=== PATIENT | male | born 1940 | race Caucasian/White ===

== ENCOUNTER 2017-10-15 10:59 | Emergency (ER) | payer MEDICARE, BC ==
[2017-10-15] MEDS ORDERED: HYDROcodone/Acetaminophen 5/325 mg Tablet ONE (12:07)
[2017-10-15] MEDS ORDERED: Acetaminophen 500 MG TAB ONE (12:07)
[2017-10-15] MEDS ORDERED: Dexamethasone 10 MG/ML VIAL ONE (12:07)
== END 2017-10-15 13:25 | disposition home or self-care (01) ==
LOC: SCSER 10:59
DX: M19.071 Primary osteoarthritis, right ankle and foot (principal); E11.9 Type 2 diabetes mellitus without complications; E03.9 Hypothyroidism, unspecified; E78.5 Hyperlipidemia, unspecified; I10 Essential (primary) hypertension; Z79.899 Other long term (current) drug therapy; Z79.01 Long term (current) use of anticoagulants; W23.0XXA Caught, crushed, jammed, or pinched between moving objects, initial encounter
CPT/HCPCS: 96372; J1100

== ENCOUNTER 2019-08-06 18:51 | Emergency (ER) | payer MEDICARE, BC ==
[2019-08-06 19:32] LABS: #Eosinphils 0.2 thou/uL (0.0-0.7); #Lymphocytes 2.4 thou/uL (1.20-3.40); #Monocytes 1.1 thou/uL (0.11-0.59); %Basophils 0.1 % (0.0-1.0); %Eosinophils 1.9 % (0.0-10.0); %Lymphocytes 22.4 % (21.0-51.0); %Monocytes 10.4 % (0.0-10.0); %Neutrophils 65.1 % (42.0-75.0); Hemoglobin 12.1 g/dL (14.0-18.0); Mean Corpuscular HGB CONC 34.6 g/dL (32.0-36.0); Mean Corpuscular Hemoglobin 35.6 pg (27.0-31.0); Mean Platelet Volume 7.9 fL (7.4-10.4); Platelet Count 247 thou/uL (130-400); RBC Distribution Width 12.3 % (11.5-14.5); White Blood Cell (WBC) Count 10.7 thou/uL (4.8-10.8)
--- NOTE | 2019-08-06 19:37 | RAD ---
LEFT KNEE FOUR VIEWS: 08/06/19 HISTORY: Knee pain and swelling for 4 to 5 days. There is a small joint effusion present. There is minimal arthritic changes of the knee. No fractures . IMPRESSION: No acute changes. Small joint effusion. POS: [facility]
--- NOTE | 2019-08-06 19:38 | RAD ---
PORTABLE CHEST: 08/06/19 HISTORY: Dyspnea. COMPARISON: 01/03/19 exam. Heart size is enlarged with postop sternotomy changes and a pacemaker. Some increased retrocardiac de nsity could represent atelectasis or infiltrate. IMPRESSION: 1. Cardiomegaly. 2. Increased retrocardiac density. Difficult to assess on the AP film. It raises the possibility of some atelectasis or retrocardiac infiltrate. POS: [facility]
[2019-08-06 19:49] LABS: PTT 83.7 SEC (22.9-36.1)
[2019-08-06 19:51] LABS: INR-International Normal Ratio 4.2
[2019-08-06] MEDS ORDERED: Lidocaine 1% w/Epinephrine 1:100K 20 ML VIAL ONE (19:52)
[2019-08-06 20:00] LABS: ALT (SGPT) 14 U/L (8-55); AST (SGOT) 19 U/L (5-34); Albumin 3.3 g/dL (3.4-4.8); Alkaline Phosphatase 62 U/L (40-150); Anion Gap 16 mmol/L (10-20); BUN (Urea Nitrogen) 21 mg/dL (8.4-25.7); Bilirubin, Total 0.8 mg/dL (0.2-1.2); Calc. Creatinine Clearance 0 mL/min (70-130); Calcium 8.4 mg/dL (7.8-10.44); Carbon Dioxide 23 mmol/L (23-31); Chloride 102 mmol/L (98-107); Estimated GFR-MDRD 56; Globulin 2.8 g/dL (2.4-3.5); Glucose 130 mg/dL (83-110); Potassium 4.3 mmol/L (3.5-5.1); Protein, Total 6.1 g/dL (5.8-8.1); Sodium 137 mmol/L (136-145)
[2019-08-06 22:17] LABS: Synovial Fluid, Protein 3.8 g/dL (Not Available)
[2019-08-06 22:21] LABS: RBC Count-Automated (BF) 3429 /cumm; WBC/Nucleated-Auto (BF) 22274 uL
[2019-08-06 22:22] LABS: BF Color Yellow; Body Fluid Source Synovial Fluid; Clarity Cloudy/Turbid (Clear)
[2019-08-06 22:23] LABS: Tube # EDTA
[2019-08-06 22:50] LABS: BF Segmented Neutrophils 96 %; Cell Count Non Hematic 4 %
== END 2019-08-06 23:48 | disposition home or self-care (01) ==
LOC: ERS 18:51
DX: M17.12 Unilateral primary osteoarthritis, left knee (principal); E03.9 Hypothyroidism, unspecified; E78.5 Hyperlipidemia, unspecified; I10 Essential (primary) hypertension; Z79.01 Long term (current) use of anticoagulants; Z79.899 Other long term (current) drug therapy
CPT/HCPCS: 20611; 36415; 71045; 80053; 82945; 83880; 84157; 84484; 85025; 85060; 85610; 85730; 86140; 89051; 89060; 93005; 94760; J2001

== ENCOUNTER 2019-08-08 11:56 | Inpatient (IN) | payer MEDICARE, BC ==
[2019-08-08] MEDS ORDERED: ISOVUE-370 76%-LOCM 1 ML ONE (13:20)
[2019-08-08 14:44] LABS: #Eosinphils 0.2 thou/uL (0.0-0.7); #Lymphocytes 2.1 thou/uL (1.20-3.40); #Monocytes 0.8 thou/uL (0.11-0.59); #Neutrophils 6.2 thou/uL (1.40-6.50); %Basophils 0.2 % (0.0-1.0); %Eosinophils 2.4 % (0.0-10.0); %Lymphocytes 22.3 % (21.0-51.0); %Monocytes 8.9 % (0.0-10.0); %Neutrophils 66.3 % (42.0-75.0); Hemoglobin 11.6 g/dL (14.0-18.0); Mean Corpuscular HGB CONC 33.6 g/dL (32.0-36.0); Mean Corpuscular Hemoglobin 34.9 pg (27.0-31.0); Mean Platelet Volume 7.9 fL (7.4-10.4); Platelet Count 247 thou/uL (130-400); RBC Distribution Width 12.4 % (11.5-14.5); Red Blood Cell (RBC) Count 3.32 mill/uL (4.70-6.10); White Blood Cell (WBC) Count 9.3 thou/uL (4.8-10.8)
--- NOTE | 2019-08-08 14:56 | RAD ---
Left knee 4 views: HISTORY: Left knee pain COMPARISON: 08/06/2019. FINDINGS: No fracture, dislocation or bony destruction is seen. Mild arthritic changes are again seen. A joint effusion is present. There is suggestion of air region of the effusion. Recent intervention versus infection. Clinical correlation is recommended.
[2019-08-08 15:11] LABS: Albumin 3.1 g/dL (3.4-4.8)
[2019-08-08 15:12] LABS: Chloride 102 mmol/L (98-107); Potassium 4.9 mmol/L (3.5-5.1); Sodium 140 mmol/L (136-145)
[2019-08-08 15:13] LABS: Calcium 8.2 mg/dL (7.8-10.44); Glucose 149 mg/dL (83-110)
[2019-08-08 15:15] LABS: Anion Gap 17 mmol/L (10-20); Bilirubin, Total 0.8 mg/dL (0.2-1.2); Carbon Dioxide 26 mmol/L (23-31)
[2019-08-08 15:16] LABS: Alkaline Phosphatase 56 U/L (40-150)
[2019-08-08 15:17] LABS: BUN (Urea Nitrogen) 17 mg/dL (8.4-25.7); Calc. Creatinine Clearance 0 mL/min (70-130); Estimated GFR-MDRD 66
[2019-08-08 15:18] LABS: AST (SGOT) 24 U/L (5-34)
[2019-08-08 15:19] LABS: ALT (SGPT) 16 U/L (8-55)
[2019-08-08 15:38] LABS: Protein, Total 6.1 g/dL (5.8-8.1)
[2019-08-08 16:01] LABS: Prothrombin Time 49.1 SEC (12.0-14.7)
[2019-08-08 16:08] LABS: INR-International Normal Ratio 5.5
--- NOTE | 2019-08-08 16:25 | RAD ---
XR Chest 1 View Portable HISTORY: Shortness of breath COMPARISON: 08/06/2019 FINDINGS: There is suggestion of a small left pleural effusion. Remainder the exam is otherwise stabl e.
--- NOTE | 2019-08-08 17:36 | CT ---
EXAM: CTA of the chest HISTORY: Shortness of breath COMPARISON: None TECHNIQUE: Multiple contiguous axial images were obtained a CTA of the chest with contrast per pulmon jorge embolism protocol. 3-D oblique MIP reformats and direct coronal reformats were performed. FINDINGS: HEART: Normal in size without focal cardiac abnormality. The patient is status post sternotomy. There is a pacemaker with its leads in the right atrium and ventricle. PULMONARY ARTERIES: Normal in caliber without filling defects to suggest pulmonary emboli. MEDIASTINUM: No hilar or mediastinal lymphadenopathy. LUNGS: Consolidation is seen in the left lower lobe consistent with pneumonia. PLEURAL SPACE: No pleural effusion or pneumothorax. CHEST WALL SOFT TISSUES: Unremarkable VISUALIZED OSSEOUS STRUCTURES: Degenerative changes in the spine. VISUALIZED SUBDIAPHRAGMATIC STRUCTURES: Unremarkable IMPRESSION: 1. No evidence of pulmonary thromboembolism 2. Left lower lobe pneumonia
[2019-08-08 18:32] LABS: Troponin I Less than 0.010 ng/mL (< 0.028)
[2019-08-08] MEDS ORDERED: Sodium Chloride 0.9% 1,000 ML IV SCH (19:45)
[2019-08-08 21:04] LABS: Troponin I Less than 0.010 ng/mL (< 0.028)
[2019-08-08] MEDS ORDERED: Fentanyl 100 MCG/2 ML VIAL ONE (21:08)
--- NOTE | 2019-08-08 21:55 | CON ---
DATE OF CONSULTATION: This is Jesus Garcaí PA-C dictating a report for Frantz Tai MD. HISTORY OF PRESENT ILLNESS: We were asked by Dr. Monique in the ER to see the patient. The patient just returned from a 23-day river trip on the [place]. About custodial to the trip, his knee started bother him. He took a Medrol Dosepak and felt okay for a while, but reports the last few days of the trip, his knee really started causing him a good deal of pain and misery. He came in this past Thursday, had the knee tapped and it did show positive crystals. White blood cell count was 22,274, but since this tap, his knee has gotten bigger with a little more warmth and it is very intolerable with any kind of activity, bending, standing, and such. It is also noted today that he has some shortness of breath and some chest pain and he will be admitted to our medical service. Again, looking back through his notes, it looks like unfortunately cultures were not sent because of the positive crystals. His C-reactive protein today was 21.35 and his sedimentation rate was 93. The patient's and son are at the bedside. There were no injuries on the trip, just increased edemas and pain. Speaking with the patient, he has had bouts of this in the past. He has gone in to see Dr. Huffman who has drawn off some fluid and given him a steroid injection and that gets him by fairly well. PAST MEDICAL HISTORY: Positive for hypothyroidism, hyperlipidemia, high cholesterol, hypertension. PAST SURGICAL HISTORY: Aortic valve, pacemaker, cardiac cath, appendectomy, coronary artery bypass graft surgery, one vessel, tonsillectomy, ablation, multiple knee taps with injections. SOCIAL HISTORY: Has occasional EtOH, beverage. No nicotine or drug use. ALLERGIES: ASPIRIN. MEDICATIONS: 1. Lasix. 2. Atorvastatin. 3. Vitamin D3. 4. Glipizide. 5. Levothyroxine. 6. Losartan. 7. Metoprolol. 8. . REVIEW OF SYSTEMS: He is having some chest pain and shortness of breath today and also significant knee pain. Otherwise, rest of review of systems is negative. PHYSICAL EXAMINATION: GENERAL: Well-nourished male, surrounded by family at the bedside. Speech is clear. Affect is pleasant. Answers questions appropriately. Alert and oriented x3. HEENT: Normal exam. Face is symmetric. Tongue is midline. NECK: Shows trachea is midline. RESPIRATORY: He is a little short of breath. Breathing about 20 respirations a minute. EXTREMITIES: Upper extremities, equal in size, shape, symmetry, normal bulk and tone. Lower extremities, also is equal in size, shape, symmetry, normal bulk and tone with the exception of the left lower extremity which does show some edema and increased warmth to the left knee. Otherwise, knee shows no increased redness or any signs of cellulitis. The patient is unable to lift his leg off the bed on the left side due to pain. Even active and passive range of motions are fairly miserable for him. Lower extremities do have a little bit of pitting edema 2 to 3+, but his pulses are equal. ASSESSMENT: 1. Left knee pain. Positive for crystals. 2. Some chest pain, shortness of breath which medical team will admit him for. PLAN: After we saw the patient, we reviewed all of his data from last few visits. It was noted that his tap was positive for crystals, but cultures for some reason were not sent. Hopefully, his knee will get better over the next few days, get some fluid off his body with Lasix and fluid restrictions per Medicine. We will get him with physical therapy once he is able to. If knee continues to be bothersome and full, he may need to have it drained or even a washout if it shows any further signs of infection, but his INR today was 5, so that needs to be much lower before we would attempt anything in the knee, which the patient and family understand. We will follow him through his hospital stay. Job ID: [id number]
--- NOTE | 2019-08-09 02:06 | HP ---
CHIEF COMPLAINT: Left knee pain. HISTORY OF PRESENT ILLNESS: The patient is an 79-year-old male, who recently was in a cruise for about I believe it was over a week, started having some palpitations in the cruise. He was found to be in atrial fibrillation. He was evaluated by a tourist, who was a physician on the cruise. The tourist physician did call his telegraph inspector and updated him about what was going on. The patient stated that his symptoms improved. However, he started having significant pain in his left knee. He has had issues with his left knee in the past and has had fluid to be aspirated in the past. The patient stated that his pain was significant to the point that he was unable to walk without assistance. The patient normally states that he is able to walk without any devices; however, whenever he starts having knee pain, he uses a cane. The patient as soon as when he came back from the cruise, he came right to the ER and he his left knee was aspirated by Ortho and was sent for studies. He was then discharged home; however, the patient stated that even at home, his pain worsened and he came into the ER because he was unable to stand without help from his son or grandson. The patient also stated that he has been having a cough, nonproductive sputum. Denies any fevers or chills. Denies any chest pain or shortness of breath. The patient states that he normally gets short of breath; however, he is trying to go to the gym to increase his endurance. However, he has not reached his goal. But he states that his shortness of breath and chest pain have not worsened. PAST MEDICAL HISTORY: He has a history of atrial fibrillation. He follows up with Dr. Tatum. He also has a history of diabetes, high cholesterol, hypertension, atrial fibrillation and arthritis. PAST SURGICAL HISTORY: He has had a tonsillectomy, appendectomy, heart valve replacement, and a pacemaker. FAMILY HISTORY: Father diseased. Mother is alive, diagnosed with asthma and bronchitis. SOCIAL HISTORY: He denies any smoking or alcohol use or drug use. He is a full code. Lives with his family and his . REVIEW OF SYSTEMS: All negative except for the ones mentioned above in the HPI. ALLERGIES: HE HAS ALLERGIES TO ASPIRIN. MEDICATIONS: 1. He is on Coumadin. 2. He is also on atorvastatin. 3. Furosemide. 4. Levothyroxine. 5. Losartan. 6. Pantoprazole. 7. Metoprolol. PHYSICAL EXAMINATION: VITAL SIGNS: Temperature of 98.8, pulse of 61, respirations are 18, blood pressure of 105/55. He is 100% on room air. GENERAL: He is awake, alert, and oriented x3. Does not appear in any distress. HEENT: Normocephalic, atraumatic. No lymphadenopathy noted. Pupils equal and reactive to light. CV: S1 and S2 present. His rhythm is paced, however, appears to be regular. LUNGS: Decreased breath sounds to left lower lung area. ABDOMEN: Soft and nontender. Bowel sounds are present x2. EXTREMITIES: Pedal pulses are present x2 bilaterally. His left knee is warm to touch. He is unable to bend his left knee. SKIN: No cuts, lesions, or bruises noted. LABORATORY RESULTS: As of the following. WBC of 9.3, hemoglobin of 11.6, hematocrit of 34.4, platelets of 247. Chemistry; sodium of 140, potassium of 4.9, BUN of 17, creatinine of 1.07. BNP is 137. Troponins x2 were negative. C-reactive protein was 21.35. His urine was not done. Also, he did have a chest x-ray which indicated possible effusion to his left lung. He did have a CTA which showed no PE, however, showed a left lower lobe pneumonia. ASSESSMENT AND PLAN: The patient is a very pleasant 79-year-old male who presents to the hospital with complaints of left knee pain. 1. Left knee pain could be secondary to hemarthrosis versus pseudogout versus gout, versus septic joint. I have asked the Lab to add a culture and sensitivity to the aspirate that was done on Thursday. We will do that and Orthopedic has already been consulted. 2. Pneumonia, most likely community-acquired. We will start him on Levaquin. We will also start him on some DuoNeb as needed and continue to monitor. 3. History of atrial fibrillation. The patient has had ablations in the past. The patient's family has requested Cardiology to see him since they had an appointment with Cardiology tomorrow. We will consult Cardiology. Also, his INR was 5.5. The patient stated that he held his Coumadin for about 3 days which was 4.2 on Saturday, so he held his Coumadin and still his INR is 5.5. 4. Hypertension. We will hold off on some of his blood pressure medications. His blood pressure seems low. We will hydrate him with a little bit of fluid and continue to monitor. 5. Deep venous thrombosis prophylaxis. The patient is already on Coumadin. Job ID: [id number]
[2019-08-09 03:45] LABS: #Basophils 0.1 thou/uL (0.0-0.2); #Eosinphils 0.3 thou/uL (0.0-0.7); #Lymphocytes 2.4 thou/uL (1.20-3.40); #Monocytes 0.8 thou/uL (0.11-0.59); #Neutrophils 4.9 thou/uL (1.40-6.50); %Basophils 0.6 % (0.0-1.0); %Eosinophils 3.5 % (0.0-10.0); %Lymphocytes 28.7 % (21.0-51.0); %Monocytes 9.9 % (0.0-10.0); %Neutrophils 57.2 % (42.0-75.0); Hemoglobin 10.9 g/dL (14.0-18.0); Mean Corpuscular HGB CONC 32.7 g/dL (32.0-36.0); Mean Corpuscular Hemoglobin 33.5 pg (27.0-31.0); Mean Platelet Volume 7.6 fL (7.4-10.4); Platelet Count 225 thou/uL (130-400); RBC Distribution Width 12.3 % (11.5-14.5); Red Blood Cell (RBC) Count 3.25 mill/uL (4.70-6.10); White Blood Cell (WBC) Count 8.5 thou/uL (4.8-10.8)
[2019-08-09 03:53] LABS: Prothrombin Time 56.9 SEC (12.0-14.7)
[2019-08-09 04:02] LABS: INR-International Normal Ratio 6.6
[2019-08-09 04:11] LABS: Anion Gap 13 mmol/L (10-20); BUN (Urea Nitrogen) 16 mg/dL (8.4-25.7); Calc. Creatinine Clearance 0 mL/min (70-130); Calcium 8.7 mg/dL (7.8-10.44); Carbon Dioxide 28 mmol/L (23-31); Chloride 101 mmol/L (98-107); Estimated GFR-MDRD 66; Glucose 99 mg/dL (83-110); Potassium 4.4 mmol/L (3.5-5.1); Sodium 138 mmol/L (136-145)
[2019-08-09] MEDS: Acetaminophen 325 MG TAB PO PRN ×2 (05:42→09:52)
[2019-08-09] MEDS: Levothyroxine Sodium 50 MCG TAB PO SCH (05:43)
[2019-08-09] MEDS ORDERED: predniSONE 20 MG TAB PO SCH (09:45)
[2019-08-09] MEDS ORDERED: Colchicine 0.6 MG TAB PO SCH (09:45)
[2019-08-09] MEDS: Magnesium Oxide 250 MG TAB PO SCH (09:51)
[2019-08-09] MEDS: Saccharomyces boulardii 250 MG CAP PO SCH (09:53)
[2019-08-09] MEDS: Losartan 25 MG TAB PO SCH (09:54)
[2019-08-09] MEDS: Propafenone HCl 150 MG TAB PO SCH ×2 (14:19→22:08)
[2019-08-09 17:24] LABS: Prothrombin Time 56.9 SEC (12.0-14.7)
[2019-08-09 17:26] LABS: INR-International Normal Ratio 6.6
[2019-08-09 17:51] LABS: Band 4 % (5-11); Hemoglobin 11.9 g/dL (14.0-18.0); Lymphocytes 6 % (21-51); MDiff Complete? YES; Mean Corpuscular HGB CONC 32.8 g/dL (32.0-36.0); Mean Corpuscular Hemoglobin 33.4 pg (27.0-31.0); Mean Platelet Volume 7.6 fL (7.4-10.4); Monocytes 3 % (0-10); Neutrophil 87 % (42-75); Platelet Count 269 thou/uL (130-400); Platelet Morphology Comment Appears Adequate; RBC Distribution Width 12.2 % (11.5-14.5); Red Blood Cell (RBC) Count 3.56 mill/uL (4.70-6.10)
--- NOTE | 2019-08-09 17:51 | PDOC.HOSPP ---
- Subjective Encounter Date: 08/09/19 Encounter Time: 10:30 Subjective: pt up in bed feels better today compared to yestarday - Objective Vital Signs & Weight: Vital Signs (12 hours) Temp Pulse Resp BP Pulse Ox 08/09/19 15:40 98.2 F 66 20 121/71 95 08/09/19 11:25 98.6 F 61 20 107/56 L 96 08/09/19 08:22 98.6 F 60 18 100/53 L 96 Weight Weight 247 lb 4.8 oz I&O: 08/08/19 08/09/19 08/10/19 06:59 06:59 06:59 Intake Total 375 Output Total 400 Balance -25 Result Diagrams: 08/09/19 03:25 08/09/19 03:25 Additional Labs: Accuchecks 08/09/19 08/09/19 17:03 10:17 POC Glucose 235 H 95 Hospitalist ROS - Review of Systems Cardiovascular: denies: chest pain, palpitations, orthopnea, paroxysmal noc. dyspnea, edema, light headedness, other Gastrointestinal: denies: nausea, vomiting, abdominal pain, diarrhea, constipation, melena, hematochezia, other Musculoskeletal: reports: leg pain - Medication Medications: Active Medications Generic Name Dose Route Start Last Admin Trade Name Freq PRN Reason Stop Dose Admin Acetaminophen 650 mg 08/08/19 18:53 08/09/19 09:52 Tylenol PO 650 mg Q4H PRN Administration Headache/Fever/Mild Pain (1-3) Levofloxacin 750 mg/ Device 150 mls @ 100 mls/hr 08/08/19 20:00 08/09/19 00: 03 IVPB 150 mls Q24HR KANDI Administration Levothyroxine Sodium 50 mcg 08/09/19 06:00 08/09/19 05:43 Synthroid PO 50 mcg 0600 KANDI Administration Losartan Potassium 100 mg 08/09/19 09:00 08/09/19 09:54 Cozaar PO Not Given DAILY KANDI Magnesium Oxide 250 mg 08/09/19 09:00 08/09/19 09:51 Magnesium Oxide PO 250 mg DAILY KANDI Administration Metoprolol Succinate 50 mg 08/09/19 09:00 08/09/19 09:58 Toprol Xl PO Not Given DAILY KANDI Pantoprazole Sodium 40 mg 08/09/19 09:00 08/09/19 09:50 Protonix PO 40 mg DAILY KANDI Administration Propafenone HCl 225 mg 08/09/19 14:00 08/09/19 14:19 Rythmol PO 225 mg Q8HR KANDI Administration Saccharomyces Boulardii 250 mg 08/09/19 09:00 08/09/19 09:53 Florastor PO 250 mg DAILY KANDI Administration - Exam Neck: negative: supple, symmetric, no JVD, no thyromegaly, no lymphadenopathy, no carotid bruit, JVD Respiratory: negative: CTAB, no wheezes, no rales, no ronchi, normal chest expansion, no tachypnea, normal percussion, rales, rhonchi, tachypneic, wheezes Extremities - other findings: mild erythema to left knee Hosp A/P (1) Pneumonia Code(s): J18.9 - PNEUMONIA, UNSPECIFIED ORGANISM Status: Acute (2) Left knee pain Code(s): M25.562 - PAIN IN LEFT KNEE Status: Acute (3) HTN (hypertension) Code(s): I10 - ESSENTIAL (PRIMARY) HYPERTENSION Status: Acute (4) Atrial fibrillation Code(s): I48.91 - UNSPECIFIED ATRIAL FIBRILLATION Status: Chronic - Plan will continue abx, PT to see pt today. will add pt on steroids and colchicine. cardiology to see pt. INR still high no sign of bleeding will hold jessica.
--- NOTE | 2019-08-09 19:41 | CON ---
DATE OF CONSULTATION: HISTORY OF PRESENT ILLNESS: Linden Song is an 79-year-old white male with extensive cardiac history. I have followed him since December 1992. At the age of [age] years old, he was diagnosed as having "glandular fever" for 6 to 8 weeks. He also thinks he may possibly have rheumatic fever, but denies any joint complications at that time. He also had undergone previous cardiac evaluations prior to that without specific disease being found. When I saw him in December 1992, his main complaint was dyspnea after walking 7 to 8 blocks. If he would slow his place, he could walk without dyspnea. He also complained of chest tightness on exertion as well as shortness of breath that was relieved with rest in 2 minutes. He saw his primary physician, Dr. Graves. EKG revealed atrial flutter with 2:1 and 4:1 block as well as poor R wave progression V1 through V3 consistent with possible anterior infarction. He also had left axis deviation and Q waves in III and aVF. He underwent echocardiogram, which is technically difficult study. He did have left atrial enlargement, left ventricular hypertrophy. Normal left ventricular contractility. Digoxin was added. He was admitted in February 1993 for possible cardioversion. He was started on Quinaglute 2 tablets q.8 hours. Placed on low-dose Lasix for peripheral edema. The quinidine was reduced to one tablet q.i.d. due to diarrhea. He underwent electrical cardioversion. With 50 joules, he did not convert and with 100 joules, converted to sinus rhythm. In July 1993, he had lost weight from 307 down to 265.5 pounds. Quinidine and Lasix were discontinued. Quinidine was mainly stopped due to mild diarrhea. He had dramatic improvement in shortness of breath as well as energy level improved after cardioversion. He continued to have a systolic ejection murmur on exam. On echo, it was difficult to determine the etiology for his murmur, but it was felt probably to be due to mitral regurgitation. In November 1994, he was seen again by Dr. Graves when atrial flutter recurred. It was recommended that he be readmitted for therapy and again was placed on quinidine for possible cardioversion. Due to his travel schedule, he could not be admitted until January 1995. He continued to try and increase his exercise. He did not have any shortness of breath or chest discomfort. When he was admitted, he spontaneously converted to sinus rhythm. He was observed overnight. After being admitted, Quinidine was restarted. He was not found to have any significant arrhythmias with this. He did have sinus bradycardia with heart rates in the 30s during the night. However, he was asymptomatic. He did not have any lightheadedness or dizziness. In March 1995, he did not have much more energy or stamina, but was found to be in sinus rhythm. It continued to be difficult to provide continuity of care for Mr. Song due to his travel schedule and frequent long trips to [place]. In October 1995, he had no complaints, but EKG did show atrial flutter. He was placed on metoprolol in November 1995 and continued to be in atrial flutter. In January 1996, he returned complaining of increased tiredness, loose stools, and was in atrial flutter with 4:1 block. He seemed to have diarrhea on quinidine and was admitted to discontinue quinidine and started on Rythmol. Diarrhea stopped with stopping the quinidine. He underwent electrical cardioversion with 50 joules and returned to sinus rhythm. Metoprolol was discontinued due to bradycardia. Blood pressure was generally in the 130-140 over 70-80. He was continued on Coumadin due to finding of intermittent atrial fibrillation-flutter. In March 1998, he was in atrial flutter and possible EP evaluation as well as amiodarone were discussed. EKG in April 1998 revealed that he is back in sinus rhythm. He continued to have intermittent atrial fibrillation , but did not wish to change therapy and Rythmol was continued. In February 2000, he was in sinus rhythm. I did not see him again for March 2001 when he was in atrial fibrillation. Echocardiogram was performed, which was technically difficult. Ejection fraction was hard to determine. There was mild aortic stenosis with peak gradient 30 mm, mean gradient 19 mm, mild mitral regurgitation, mild tricuspid regurgitation, mild pulmonic insufficiency. It was recommended he will be admitted for institution therapy with amiodarone. However, due to his travel schedule, he was unable to do that until he was admitted in July 2001. He was loaded with amiodarone 1600 mg per day and underwent cardioversion with 200 joules, returned to sinus rhythm. He noticed significant improvement in his breathing during his walks after cardioversion. Due to prolonged OH interval, digoxin was discontinued. He had recurrence of atrial flutter in September 2001 and was evaluated by Dr. Scherer. He ultimately underwent flutter ablation. In May 2002, he was seen in the emergency room in atrial fibrillation. Amiodarone was increased to 200 mg b.i.d. Electrocardiogram later that month revealed that he had returned to sinus rhythm. He started to have problems with increasing peripheral edema, especially after airplane trips. Amiodarone was reduced to 300 mg daily. In August 2004, he had increased shortness of breath. He did not feel that he was in atrial fibrillation. Echo revealed ejection fraction of 50% to 55%. The peak gradient across the aortic valve was 46 mm with mean gradient of 27 mm. He underwent adenosine Cardiolite testing and was in atrial fibrillation. He was found to have decreased inferior wall uptake at rest and stress. He had no reversible ischemia. In April 2005, he was placed on CPAP for obstructive sleep apnea. In April 2006, he denied any palpitations or chest discomfort. In March 2006, he continued with finding of increased fatigue, dyspnea on exertion. He has undergone transesophageal echo in February [address] Bach. He was found to have mild mitral regurgitation, trace aortic insufficiency, moderate tricuspid regurgitation. Aortic valve was sclerotic and possibly bicuspid with a gradient of 30 mm. However, it was difficult to measure the exact gradient. Ejection fraction was 60% to 65%. There was no evidence for atrial thrombus, atrial septal defect, or ventricular septal defect. With previous exertional dyspnea and aortic valve gradient is as high as 46 mm on echo and the finding by a possible bicuspid valve, it is recommended that he undergo cardiac catheterization better defined the severity of his aortic stenosis. On catheterization, mean gradient was 40 mm with a valve area 0.98 cm2. Ejection fraction was 40% to 45%. This appeared to be a bicuspid valve. The circumflex had a 60% to 75% first obtuse marginal stenosis, but otherwise coronary arteries were unremarkable. He then underwent aortic valve replacement #25 [employer] [place] mechanical valve and CABG x1 to the obtuse marginal. He was in and out of atrial fibrillation during that admission. He did undergo epicardial maze procedure at the time of the aortic valve replacement. He was readmitted one month later. He was placed on antibiotics for pain in his left leg and temperature elevation. Electrophysiology had found at that time that he was in atrial tachycardia, first-degree AV block , 2:1 AV block. Ultimately, he was placed on amiodarone and Rythmol. He underwent atrial flutter ablation. Pacemaker was placed. He continued on amiodarone and Rythmol for several years with fairly good control of his atrial arrhythmias. Ultimately, he required multiple atrial fibrillation ablations and basically has started to have more atrial fibrillation recently. He has declined any further ablative procedure. I last saw him in March 2009 and propafenone was increased 225 mg t.i.d. due to an increase in the number of episodes of atrial fibrillation on his pacemaker. He recently underwent on a 23 day cruise and felt at times more short of breath and thought that he may have been in atrial fibrillation. [facility] is still pending. He mainly came in now due to extensive pain in his left knee. He denies any chest discomfort. PAST MEDICAL HISTORY: Paroxysmal atrial fibrillation for many years, diabetes, hypercholesterolemia, hypertension, arthritis, coronary artery disease. PAST SURGICAL HISTORY: Mechanical aortic valve replacement and CABG x1, tonsillectomy, appendectomy, pacemaker placement. In 2002, he underwent replacement of the pacemaker. MEDICATIONS: 1. Zyrtec one tablet daily. 2. Furosemide 80 mg b.i.d. 3. Glipizide 7.5 mg daily. 4. Levothyroxine 100 mcg daily. 5. Losartan 100 daily. 6. Magnesium oxide 250 daily. 7. Metoprolol ER 50 q.a.m. 8. Protonix 40 mg daily. 9. KCl 20 mEq b.i.d. 10. Propafenone 225 t.i.d. 11. CoQ10 of 100 mg daily. 12. Warfarin 2 mg daily. ALLERGIES: ASPIRIN-TRUE ASPIRIN ALLERGY WITH DEVELOPMENT OF HIVES. SOCIAL HISTORY: He does not smoke. He occasionally drinks. 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 FAMILY HISTORY: Father had CABG in his 70s. REVIEW OF SYSTEMS: A 12-point review of systems is otherwise unremarkable. PHYSICAL EXAMINATION: VITAL SIGNS: Blood pressure 107/56, pulse of 61. HEENT: PERRL. NECK: Supple. CHEST: Clear. CARDIAC: S1 is normal. There is a prosthetic S2 click. There is a 1-2/6 systolic ejection murmur. ABDOMEN: Obese. Normal bowel sounds without tenderness or organomegaly. EXTREMITIES: Reveal 1+ pretibial edema. His left knee is exquisitely tender. NEUROLOGIC: Grossly intact. LABORATORY DATA: Reveals A-V pacing. Hemoglobin 10.9, hematocrit 33.2, white count 8500, platelets 225,000. INR was 4.2 on admission and now is up to 6.6. Sodium 138, potassium 4.4, chloride 101, carbon dioxide 28, BUN 16, creatinine 1.06. BNP 137.8. Troponin I is negative x4. IMPRESSION: 1. Left knee pain possibly due to hemarthrosis with significantly elevated INR versus gout versus septic joint. 2. Pneumonia, community acquired. 3. Status post coronary artery bypass graft x1 and mechanical aortic valve replacement. 4. Dual-chamber pacemaker. 5. Progressive atrial arrhythmias. He has undergone 2 ablation as well as multiple cardioversions and still spends much of his time in atrial fibrillation. 6. Hypercholesterolemia. 7. Hypertension. 8. Diabetes. 9. Obstructive sleep apnea. 10. Hypothyroidism. PLAN: The patient's Coumadin has been withheld. With his low blood pressure, furosemide has also been held. Echocardiogram will be performed. I will continue to follow the patient with you. He will undergo [email or web address] to re- evaluate his pacemaker. Job Tatum MD Job ID: [id number] MTDD
[2019-08-09] MEDS: Colchicine 0.6 MG TAB PO SCH (22:08)
[2019-08-10] MEDS ORDERED: Dextrose 50% Abboject 50 ML SYRINGE SLOW IVP PRN (00:42)
[2019-08-10] MEDS ORDERED: Dextrose 5% in Water 1,000 ML IV PRN (00:42)
[2019-08-10] MEDS: HumaLOG 300 UNITS/3 ML VIAL SC PRN ×4 (02:13→18:39)
[2019-08-10] MEDS: Propafenone HCl 150 MG TAB PO SCH ×3 (06:45→21:29)
[2019-08-10] MEDS: Levothyroxine Sodium 50 MCG TAB PO SCH (06:46)
[2019-08-10 07:03] VITALS: BMI 35.8
[2019-08-10] MEDS: Colchicine 0.6 MG TAB PO SCH ×2 (08:34→21:29)
[2019-08-10] MEDS: Saccharomyces boulardii 250 MG CAP PO SCH (08:34)
[2019-08-10] MEDS: predniSONE 20 MG TAB PO SCH (08:34)
[2019-08-10] MEDS: Losartan 25 MG TAB PO SCH (08:35)
[2019-08-10] MEDS: Loratadine 10 MG TAB PO SCH (08:35)
[2019-08-10] MEDS: Magnesium Oxide 250 MG TAB PO SCH (08:35)
[2019-08-10 10:31] LABS: Prothrombin Time 56.1 SEC (12.0-14.7)
[2019-08-10 10:46] LABS: INR-International Normal Ratio 6.5
[2019-08-10] MEDS ORDERED: Phytonadione 10 MG/ML AMP PO SCH (12:45)
--- NOTE | 2019-08-10 13:27 | PDOC.HOSPP ---
- Subjective Encounter Date: 08/10/19 Encounter Time: 11:00 Subjective: pt up in bed feels well. PT could not get him up since his inr was elevated - Objective Vital Signs & Weight: Vital Signs (12 hours) Temp Pulse Resp BP Pulse Ox 08/10/19 11:54 97.8 F 62 16 99/56 L 95 08/10/19 07:57 97.7 F 60 20 125/66 97 08/10/19 03:55 97.3 F L 60 20 106/59 L 97 Weight Weight 249 lb 8 oz I&O: 08/09/19 08/10/19 08/11/19 06:59 06:59 06:59 Intake Total 375 1695 Output Total 400 1050 Balance -25 645 Result Diagrams: 08/09/19 17:06 08/09/19 03:25 Additional Labs: Accuchecks 08/10/19 08/10/19 08/10/19 10:41 05:39 02:13 POC Glucose 180 H 222 H 299 H 08/09/19 08/09/19 20:36 17:03 POC Glucose 376 H 235 H Hospitalist ROS - Review of Systems Cardiovascular: denies: chest pain, palpitations, orthopnea, paroxysmal noc. dyspnea, edema, light headedness, other Gastrointestinal: denies: nausea, vomiting, abdominal pain, diarrhea, constipation, melena, hematochezia, other Genitourinary: denies: dysuria, frequency, incontinence, hematuria, retention, other - Medication Medications: Active Medications Generic Name Dose Route Start Last Admin Trade Name Freq PRN Reason Stop Dose Admin Acetaminophen 650 mg 08/08/19 18:53 08/09/19 09:52 Tylenol PO 650 mg Q4H PRN Administration Headache/Fever/Mild Pain (1-3) Cholecalciferol 5,000 units 08/10/19 09:00 08/10/19 08:34 Vitamin D3 PO 5,000 units DAILY KANDI Administration Colchicine 0.6 mg 08/09/19 21:00 08/10/19 08:34 Colchicine PO 0.6 mg BID KANDI Administration Levofloxacin 750 mg/ Device 150 mls @ 100 mls/hr 08/08/19 20:00 08/09/19 22: 07 IVPB 150 mls Q24HR KANDI Administration Insulin Human Lispro 0 units 08/10/19 00:42 08/10/19 06:46 Humalog SC 3 unit .MILD SLIDING SCALE PRN Administration Mild Correctional Scale Levothyroxine Sodium 50 mcg 08/09/19 06:00 08/10/19 06:46 Synthroid PO 50 mcg 0600 KANDI Administration Loratadine 10 mg 08/10/19 09:00 08/10/19 08:35 Claritin PO 10 mg DAILY KANDI Administration Losartan Potassium 100 mg 08/09/19 09:00 08/10/19 08:35 Cozaar PO Not Given DAILY KANDI Magnesium Oxide 250 mg 08/09/19 09:00 08/10/19 08:35 Magnesium Oxide PO 250 mg DAILY KANDI Administration Metoprolol Succinate 50 mg 08/09/19 09:00 08/10/19 08:37 Toprol Xl PO Not Given DAILY KANDI Pantoprazole Sodium 40 mg 08/09/19 09:00 08/10/19 08:35 Protonix PO 40 mg DAILY KANDI Administration Prednisone 40 mg 08/10/19 08:00 08/10/19 08:34 Prednisone PO 40 mg QAM-WM KANDI Administration Propafenone HCl 225 mg 08/09/19 14:00 08/10/19 06:45 Rythmol PO 225 mg Q8HR KANDI Administration Saccharomyces Boulardii 250 mg 08/09/19 09:00 08/10/19 08:34 Florastor PO 250 mg DAILY KANDI Administration - Exam Neck: negative: supple, symmetric, no JVD, no thyromegaly, no lymphadenopathy, no carotid bruit, JVD Heart: negative: RRR, no murmur, no gallops, no rubs, normal peripheral pulses, irregular, diminshed peripheral pulses, murmur present, II/IV, III/IV Respiratory: negative: CTAB, no wheezes, no rales, no ronchi, normal chest expansion, no tachypnea, normal percussion, rales, rhonchi, tachypneic, wheezes Extremities - other findings: pain to left knee improved Hosp A/P (1) Pneumonia Code(s): J18.9 - PNEUMONIA, UNSPECIFIED ORGANISM Status: Acute (2) Left knee pain Code(s): M25.562 - PAIN IN LEFT KNEE Status: Acute (3) HTN (hypertension) Code(s): I10 - ESSENTIAL (PRIMARY) HYPERTENSION Status: Acute (4) Atrial fibrillation Code(s): I48.91 - UNSPECIFIED ATRIAL FIBRILLATION Status: Chronic - Plan will continue abx, PT to see pt today. will add pt on steroids and colchicine. cardiology to see pt. INR still high no sign of bleeding will hold comadin. 05/10 pt's left knee pain improved, will continue steroids and abx for pneumonia. pt feels well. will give him a small dose of vit K since his inr is still high off coumadin for 5 days now. pt overall feels well. cardiology to evaluate his pacemaker.
[2019-08-11] MEDS: Melatonin 3 MG TAB PO PRN ×2 (01:49→21:41)
[2019-08-11 04:26] LABS: #Lymphocytes 1.3 thou/uL (1.20-3.40); #Monocytes 0.4 thou/uL (0.11-0.59); #Neutrophils 4.8 thou/uL (1.40-6.50); %Basophils 0.2 % (0.0-1.0); %Eosinophils 0.4 % (0.0-10.0); %Lymphocytes 20.4 % (21.0-51.0); %Monocytes 5.5 % (0.0-10.0); %Neutrophils 73.4 % (42.0-75.0); Hemoglobin 10.4 g/dL (14.0-18.0); Mean Corpuscular HGB CONC 33.9 g/dL (32.0-36.0); Mean Corpuscular Hemoglobin 34.9 pg (27.0-31.0); Mean Platelet Volume 8.7 fL (7.4-10.4); Platelet Count 217 thou/uL (130-400); RBC Distribution Width 11.9 % (11.5-14.5); Red Blood Cell (RBC) Count 2.99 mill/uL (4.70-6.10); White Blood Cell (WBC) Count 6.6 thou/uL (4.8-10.8)
[2019-08-11 04:28] LABS: INR-International Normal Ratio 2.8; Prothrombin Time 29.6 SEC (12.0-14.7)
[2019-08-11 04:46] LABS: ALT (SGPT) 16 U/L (8-55); AST (SGOT) 17 U/L (5-34); Albumin 2.9 g/dL (3.4-4.8); Alkaline Phosphatase 53 U/L (40-150); Anion Gap 12 mmol/L (10-20); BUN (Urea Nitrogen) 20 mg/dL (8.4-25.7); Bilirubin, Total 0.4 mg/dL (0.2-1.2); Calc. Creatinine Clearance 99 mL/min (70-130); Calcium 8.9 mg/dL (7.8-10.44); Carbon Dioxide 27 mmol/L (23-31); Chloride 101 mmol/L (98-107); Estimated GFR-MDRD 77; Globulin 3.4 g/dL (2.4-3.5); Glucose 229 mg/dL (83-110); Potassium 4.3 mmol/L (3.5-5.1); Protein, Total 6.3 g/dL (5.8-8.1); Sodium 136 mmol/L (136-145)
[2019-08-11] MEDS: Levothyroxine Sodium 50 MCG TAB PO SCH (05:42)
[2019-08-11] MEDS: Propafenone HCl 150 MG TAB PO SCH ×3 (05:42→21:24)
[2019-08-11] MEDS: HumaLOG 300 UNITS/3 ML VIAL SC PRN ×3 (07:10→21:42)
[2019-08-11] MEDS: Magnesium Oxide 250 MG TAB PO SCH (08:59)
[2019-08-11] MEDS: Colchicine 0.6 MG TAB PO SCH ×2 (08:59→21:24)
[2019-08-11] MEDS: predniSONE 20 MG TAB PO SCH (08:59)
[2019-08-11] MEDS: Losartan 25 MG TAB PO SCH (09:00)
[2019-08-11] MEDS: Loratadine 10 MG TAB PO SCH (09:00)
[2019-08-11] MEDS: Saccharomyces boulardii 250 MG CAP PO SCH (09:00)
[2019-08-11] MEDS ORDERED: Furosemide 80 MG TAB PO SCH (09:15)
--- NOTE | 2019-08-11 14:07 | PDOC.HOSPP ---
- Subjective Encounter Date: 08/11/19 Encounter Time: 10:15 Subjective: pt up in bed feels well. - Objective Vital Signs & Weight: Vital Signs (12 hours) Temp Pulse Pulse Pulse Resp BP BP 08/11/19 11:30 97.6 F 61 18 08/11/19 09:52 60 62 134/81 129/73 08/11/19 08:00 08/11/19 07:52 97.7 F 61 16 08/11/19 04:00 97.6 F 60 18 BP BP Pulse Ox Pulse Ox Pulse Ox 08/11/19 11:30 124/71 95 08/11/19 09:52 93 L 93 L 08/11/19 08:00 96 08/11/19 07:52 130/68 96 08/11/19 04:00 121/67 97 Weight Weight 249 lb 8 oz I&O: 08/10/19 08/11/19 08/12/19 06:59 06:59 06:59 Intake Total 1695 610 Output Total 1050 1 Balance 645 610 -1 Result Diagrams: 08/11/19 04:08 08/11/19 04:08 Additional Labs: Accuchecks 08/11/19 08/11/19 08/10/19 10:32 06:46 20:15 POC Glucose 147 H 210 H 290 H 08/10/19 16:49 POC Glucose 246 H Hospitalist ROS - Review of Systems Cardiovascular: denies: chest pain, palpitations, orthopnea, paroxysmal noc. dyspnea, edema, light headedness, other Gastrointestinal: denies: nausea, vomiting, abdominal pain, diarrhea, constipation, melena, hematochezia, other - Medication Medications: Active Medications Generic Name Dose Route Start Last Admin Trade Name Freq PRN Reason Stop Dose Admin Acetaminophen 650 mg 08/08/19 18:53 08/09/19 09:52 Tylenol PO 650 mg Q4H PRN Administration Headache/Fever/Mild Pain (1-3) Cholecalciferol 5,000 units 08/10/19 09:00 08/11/19 08:59 Vitamin D3 PO 5,000 units DAILY KANDI Administration Colchicine 0.6 mg 08/09/19 21:00 08/11/19 08:59 Colchicine PO 0.6 mg BID KANDI Administration Levofloxacin 750 mg/ Device 150 mls @ 100 mls/hr 08/08/19 20:00 08/10/19 21: 31 IVPB 150 mls Q24HR KANDI Administration Insulin Human Lispro 0 units 08/10/19 00:42 08/11/19 07:10 Humalog SC 3 unit .MILD SLIDING SCALE PRN Administration Mild Correctional Scale Levothyroxine Sodium 50 mcg 08/09/19 06:00 08/11/19 05:42 Synthroid PO 50 mcg 0600 KANDI Administration Loratadine 10 mg 08/10/19 09:00 08/11/19 09:00 Claritin PO 10 mg DAILY KANDI Administration Losartan Potassium 100 mg 08/09/19 09:00 08/11/19 09:00 Cozaar PO 100 mg DAILY KANDI Administration Magnesium Oxide 250 mg 08/09/19 09:00 08/11/19 08:59 Magnesium Oxide PO 250 mg DAILY KANDI Administration Melatonin 3 mg 08/11/19 01:16 08/11/19 01:49 Melatonin PO 3 mg HS PRN Administration Insomnia Metoprolol Succinate 50 mg 08/09/19 09:00 08/11/19 09:00 Toprol Xl PO 50 mg DAILY KANDI Administration Pantoprazole Sodium 40 mg 08/09/19 09:00 08/11/19 09:00 Protonix PO 40 mg DAILY KANDI Administration Prednisone 40 mg 08/10/19 08:00 08/11/19 08:59 Prednisone PO 40 mg QAM-WM KANDI Administration Propafenone HCl 225 mg 08/09/19 14:00 08/11/19 05:42 Rythmol PO 225 mg Q8HR KANDI Administration Saccharomyces Boulardii 250 mg 08/09/19 09:00 08/11/19 09:00 Florastor PO 250 mg DAILY KANDI Administration - Exam Neck: negative: supple, symmetric, no JVD, no thyromegaly, no lymphadenopathy, no carotid bruit, JVD Heart: negative: RRR, no murmur, no gallops, no rubs, normal peripheral pulses, irregular, diminshed peripheral pulses, murmur present, II/IV, III/IV Respiratory: negative: CTAB, no wheezes, no rales, no ronchi, normal chest expansion, no tachypnea, normal percussion, rales, rhonchi, tachypneic, wheezes Gastrointestinal: negative: soft, non-tender, non-distended, normal bowel sounds , no palpable masses, no hepatomegaly, no splenomegaly, no bruit, no guarding, no rigidity, tender to palpation, distended, diminished bowl sounds, voluntary guarding Hosp A/P (1) Pneumonia Code(s): J18.9 - PNEUMONIA, UNSPECIFIED ORGANISM Status: Acute (2) Left knee pain Code(s): M25.562 - PAIN IN LEFT KNEE Status: Acute (3) HTN (hypertension) Code(s): I10 - ESSENTIAL (PRIMARY) HYPERTENSION Status: Acute (4) Atrial fibrillation Code(s): I48.91 - UNSPECIFIED ATRIAL FIBRILLATION Status: Chronic - Plan will continue abx, PT to see pt today. will add pt on steroids and colchicine. cardiology to see pt. INR still high no sign of bleeding will hold comadin. 05/10 pt's left knee pain improved, will continue steroids and abx for pneumonia. pt feels well. will give him a small dose of vit K since his inr is still high off coumadin for 5 days now. pt overall feels well. cardiology to evaluate his pacemaker. 05/11 pt's inr is 2.8 hopefully he will get PT. his knee pain has improved. will continue abx. will stop steroids ghada.
[2019-08-11] MEDS: Warfarin Sodium 2 MG TAB PO SCH (17:30)
[2019-08-12] MEDS: Propafenone HCl 150 MG TAB PO SCH ×3 (05:33→21:19)
[2019-08-12] MEDS: Levothyroxine Sodium 50 MCG TAB PO SCH (05:33)
[2019-08-12] MEDS: HumaLOG 300 UNITS/3 ML VIAL SC PRN ×4 (06:26→21:32)
[2019-08-12] MEDS: Saccharomyces boulardii 250 MG CAP PO SCH (09:14)
[2019-08-12] MEDS: Furosemide 80 MG TAB PO SCH (09:15)
[2019-08-12] MEDS: Magnesium Oxide 250 MG TAB PO SCH (09:15)
[2019-08-12] MEDS: Loratadine 10 MG TAB PO SCH (09:15)
[2019-08-12] MEDS: Colchicine 0.6 MG TAB PO SCH ×2 (09:15→21:18)
[2019-08-12] MEDS: Losartan 25 MG TAB PO SCH (09:16)
[2019-08-12] MEDS: predniSONE 20 MG TAB PO SCH (09:16)
[2019-08-12 10:00] LABS: INR-International Normal Ratio 1.7; Prothrombin Time 20.1 SEC (12.0-14.7)
[2019-08-12] MEDS ORDERED: Warfarin Sodium 5 MG TAB PO SCH (13:30)
[2019-08-12] MEDS: Warfarin Sodium 2 MG TAB PO SCH (16:17)
[2019-08-12] MEDS: Enoxaparin Sodium 100 MG/ML SYRINGE SC SCH (21:19)
--- NOTE | 2019-08-12 22:31 | PDOC.HOSPP ---
- Subjective Encounter Date: 08/12/19 Encounter Time: 09:00 Subjective: pt up in bed feels well - Objective Vital Signs & Weight: Vital Signs (12 hours) Temp Pulse Resp BP Pulse Ox 08/12/19 19:40 97.6 F 77 16 133/71 95 08/12/19 15:48 98.2 F 60 16 105/62 94 L 08/12/19 11:49 97.5 F L 70 20 115/59 L 97 Weight Weight 249 lb 8 oz I&O: 08/11/19 08/12/19 08/13/19 06:59 06:59 06:59 Intake Total 610 635 Output Total 1 Balance 610 -1 635 Result Diagrams: 08/11/19 04:08 08/11/19 04:08 Additional Labs: Accuchecks 08/12/19 08/12/19 08/12/19 20:11 16:39 10:46 POC Glucose 271 H 300 H 163 H 08/12/19 05:51 POC Glucose 227 H Hospitalist ROS - Review of Systems Gastrointestinal: denies: nausea, vomiting, abdominal pain, diarrhea, constipation, melena, hematochezia, other - Medication Medications: Active Medications Generic Name Dose Route Start Last Admin Trade Name Freq PRN Reason Stop Dose Admin Acetaminophen 650 mg 08/08/19 18:53 08/09/19 09:52 Tylenol PO 650 mg Q4H PRN Administration Headache/Fever/Mild Pain (1-3) Cholecalciferol 5,000 units 08/10/19 09:00 08/12/19 09:15 Vitamin D3 PO 5,000 units DAILY KANDI Administration Colchicine 0.6 mg 08/09/19 21:00 08/12/19 21:18 Colchicine PO 0.6 mg BID KANDI Administration Enoxaparin Sodium 110 mg 08/12/19 21:00 08/12/19 21:19 Lovenox SC 110 mg 0900,2100 KANDI Administration Furosemide 80 mg 08/12/19 09:00 08/12/19 09:15 Lasix PO 80 mg DAILY KANDI Administration Levofloxacin 750 mg/ Device 150 mls @ 100 mls/hr 08/08/19 20:00 08/12/19 21: 18 IVPB 150 mls Q24HR KANDI Administration Insulin Human Lispro 0 units 08/10/19 00:42 08/12/19 17:53 Humalog SC 4 unit .MILD SLIDING SCALE PRN Administration Mild Correctional Scale Insulin Human Lispro 0 units 08/10/19 00:42 08/12/19 21:32 Humalog SC 3 unit .BEDTIME SLIDING SC PRN Administration Bedtime Correctional Scale Levothyroxine Sodium 50 mcg 08/09/19 06:00 08/12/19 05:33 Synthroid PO 50 mcg 0600 KANDI Administration Loratadine 10 mg 08/10/19 09:00 08/12/19 09:15 Claritin PO 10 mg DAILY KANDI Administration Losartan Potassium 100 mg 08/09/19 09:00 08/12/19 09:16 Cozaar PO 100 mg DAILY KANDI Administration Magnesium Oxide 250 mg 08/09/19 09:00 08/12/19 09:15 Magnesium Oxide PO 250 mg DAILY KANDI Administration Melatonin 3 mg 08/11/19 01:16 08/11/19 21:41 Melatonin PO 3 mg HS PRN Administration Insomnia Metoprolol Succinate 50 mg 08/09/19 09:00 08/12/19 09:16 Toprol Xl PO 50 mg DAILY KANDI Administration Pantoprazole Sodium 40 mg 08/09/19 09:00 08/12/19 09:15 Protonix PO 40 mg DAILY KANDI Administration Prednisone 40 mg 08/10/19 08:00 08/12/19 09:16 Prednisone PO 40 mg QAM-WM KANDI Administration Propafenone HCl 225 mg 08/09/19 14:00 08/12/19 21:19 Rythmol PO 225 mg Q8HR KANDI Administration Saccharomyces Boulardii 250 mg 08/09/19 09:00 08/12/19 09:14 Florastor PO 250 mg DAILY KANDI Administration Warfarin Sodium 2 mg 08/11/19 17:00 08/12/19 16:17 Coumadin PO 2 mg [id number] KANDI Administration - Exam Heart: negative: RRR, no murmur, no gallops, no rubs, normal peripheral pulses, irregular, diminshed peripheral pulses, murmur present, II/IV, III/IV Respiratory: negative: CTAB, no wheezes, no rales, no ronchi, normal chest expansion, no tachypnea, normal percussion, rales, rhonchi, tachypneic, wheezes Gastrointestinal: negative: soft, non-tender, non-distended, normal bowel sounds , no palpable masses, no hepatomegaly, no splenomegaly, no bruit, no guarding, no rigidity, tender to palpation, distended, diminished bowl sounds, voluntary guarding Hosp A/P (1) Pneumonia Code(s): J18.9 - PNEUMONIA, UNSPECIFIED ORGANISM Status: Acute (2) Left knee pain Code(s): M25.562 - PAIN IN LEFT KNEE Status: Acute (3) HTN (hypertension) Code(s): I10 - ESSENTIAL (PRIMARY) HYPERTENSION Status: Acute (4) Atrial fibrillation Code(s): I48.91 - UNSPECIFIED ATRIAL FIBRILLATION Status: Chronic - Plan will continue abx, PT to see pt today. will add pt on steroids and colchicine. cardiology to see pt. INR still high no sign of bleeding will hold comadin. 05/10 pt's left knee pain improved, will continue steroids and abx for pneumonia. pt feels well. will give him a small dose of vit K since his inr is still high off coumadin for 5 days now. pt overall feels well. cardiology to evaluate his pacemaker. 05/11 pt's inr is 2.8 hopefully he will get PT. his knee pain has improved. will continue abx. will stop steroids ghada. 08/12 pt will need 5 days of steroids in total. His inr was 1.7 he wanted to stay to make sure it goes up. he follows coumadin clinic. will continue levaquin for pna. He is feeling well and possible dc in am.
[2019-08-13 04:39] LABS: Prothrombin Time 22.2 SEC (12.0-14.7)
[2019-08-13] MEDS: Levothyroxine Sodium 50 MCG TAB PO SCH (06:19)
[2019-08-13] MEDS: Propafenone HCl 150 MG TAB PO SCH ×2 (06:19→14:28)
[2019-08-13] MEDS: HumaLOG 300 UNITS/3 ML VIAL SC PRN (06:38)
[2019-08-13 07:54] VITALS: TEMP 97.6
[2019-08-13] MEDS: Enoxaparin Sodium 100 MG/ML SYRINGE SC SCH (09:22)
[2019-08-13] MEDS: Saccharomyces boulardii 250 MG CAP PO SCH (09:25)
[2019-08-13] MEDS: Loratadine 10 MG TAB PO SCH (09:25)
[2019-08-13] MEDS: Colchicine 0.6 MG TAB PO SCH (09:25)
[2019-08-13] MEDS: Magnesium Oxide 250 MG TAB PO SCH (09:26)
[2019-08-13] MEDS: Furosemide 80 MG TAB PO SCH (09:26)
[2019-08-13] MEDS: predniSONE 20 MG TAB PO SCH (09:27)
[2019-08-13] MEDS: Losartan 25 MG TAB PO SCH (09:27)
--- NOTE | 2019-08-13 14:00 | PDOC.CPN ---
- Subjective Date: 08/13/19 Time: 14:27 Interval history: The pt seen and examined. No overnight events. No cardiac complaints. - Objective Allergies/Adverse Reactions: Allergies Allergy/AdvReac Type Severity Reaction Status Date / Time aspirin Allergy Verified 08/09/19 04:58 Visit Medications: Current Medications Acetaminophen (Tylenol) 650 mg PO Q4H PRN PRN Reason: Headache/Fever/Mild Pain (1-3) Last Admin: 08/09/19 09:52 Dose: 650 mg Cholecalciferol (Vitamin D3) 5,000 units PO DAILY [facility] Last Admin: 08/13/19 09:25 Dose: 5,000 units Colchicine (Colchicine) 0.6 mg PO BID [facility] Last Admin: 08/13/19 09:25 Dose: 0.6 mg Dextrose/Water (Dextrose 50%) 25 gm SLOW IVP PRN PRN PRN Reason: Hypoglycemia Furosemide (Lasix) 80 mg PO DAILY [facility] Last Admin: 08/13/19 09:26 Dose: 80 mg Glucagon (Glucagon) 1 mg IM PRN PRN PRN Reason: Hypoglycemia Levofloxacin 750 mg/ Device 150 mls @ 100 mls/hr IVPB Q24HR [facility] Last Admin: 08/12/19 21:18 Dose: 150 mls Dextrose/Water (D5w) 1,000 mls @ 0 mls/hr IV .Q0M PRN PRN Reason: Hypoglycemia Insulin Human Lispro (Humalog) 0 units SC .MILD SLIDING SCALE PRN PRN Reason: Mild Correctional Scale Last Admin: 08/13/19 06:38 Dose: 3 unit Insulin Human Lispro (Humalog) 0 units SC .BEDTIME SLIDING SC PRN PRN Reason: Bedtime Correctional Scale Last Admin: 08/12/19 21:32 Dose: 3 unit Levothyroxine Sodium (Synthroid) 50 mcg PO 0600 [facility] Last Admin: 08/13/19 06:19 Dose: 50 mcg Loratadine (Claritin) 10 mg PO DAILY [facility] Last Admin: 08/13/19 09:25 Dose: 10 mg Losartan Potassium (Cozaar) 100 mg PO DAILY [facility] Last Admin: 08/13/19 09:27 Dose: 100 mg Magnesium Oxide (Magnesium Oxide) 250 mg PO DAILY [facility] Last Admin: 08/13/19 09:26 Dose: 250 mg Melatonin (Melatonin) 3 mg PO HS PRN PRN Reason: Insomnia Last Admin: 08/11/19 21:41 Dose: 3 mg Metoprolol Succinate (Toprol Xl) 50 mg PO DAILY [facility] Last Admin: 08/13/19 09:26 Dose: 50 mg Miscellaneous Medication (Pharmacy To Dose) 1 each PO PRN PRN PRN Reason: Pharmacy to dose Pantoprazole Sodium (Protonix) 40 mg PO DAILY [facility] Last Admin: 08/13/19 09:26 Dose: 40 mg Prednisone (Prednisone) 40 mg PO QAM-WM [facility] Last Admin: 08/13/19 09:27 Dose: 40 mg Propafenone HCl (Rythmol) 225 mg PO Q8HR [facility] Last Admin: 08/13/19 06:19 Dose: 225 mg Saccharomyces Boulardii (Florastor) 250 mg PO DAILY [facility] Last Admin: 08/13/19 09:25 Dose: 250 mg Warfarin Sodium (Coumadin) 2 mg PO SuMoTuThFr [facility] Last Admin: 08/12/19 16:17 Dose: 2 mg Warfarin Sodium (Coumadin) [facility] Vital Signs & Weight: Vital Signs Temp Pulse Resp BP Pulse Ox 08/13/19 11:00 97.6 F 72 16 140/79 94 L 08/13/19 07:53 97.6 F 67 16 128/80 93 L 08/13/19 04:00 97.7 F 60 16 136/81 97 Weight 249 lb 8 oz - Physical Exam General: alert & oriented x3 Neck: supple neck Cardiac: regular rate and rhythm, S1/S2 Lungs: decreased breath sounds Musculoskeletal: decreased range of motion - Labs Result Diagrams: 08/11/19 04:08 08/11/19 04:08 Troponin/CKMB Troponin I Less than 0.010 ng/mL (< 0.028) 08/08/19 20:30 - Telemetry Sinus rhythms and dysrhythmias: other (AV paced) - Assessment/Plan Assessment/Plan: 1. Prox Afib - welll controlled HR with Metoprolol; On Coumadin 2. CAD with hx of CABG x1 - stable; on bblocker; not on ASA but on Coumadin; not on statin possible due to myalgia? 3. Hx of Mechanical AVR with Coumadin 4. HTN - stable 5. DM type 2 - 6. Sleep Apnea with cpap 7. Hypothyroidism - 8. Lt knee pain - improving 9. PNA MAR Reviewed * From cardiac standpoint, the pt is stable d/c home. The pt will f/u with Dr Tatum's office within 2-4wks.
--- NOTE | 2019-08-13 14:12 | EKG ---
Test Reason : Blood Pressure : / mmHG Vent. Rate : 060 BPM Atrial Rate : 060 BPM P-R Int : 000 ms QRS Dur : 162 ms QT Int : 552 ms P-R-T Axes : 088 -81 093 degrees QTc Int : 552 ms AV dual-paced rhythm with prolonged AV conduction Abnormal ECG Confirmed by MINOO ALVA ([id number]), editor magazine CONRADO LAUREANO ([id number]) on 08/13/2019 2:12:32 PM Referred By: Confirmed By:MINOO ALVA
[2019-08-13 14:41] VITALS: BP 148/91
[2019-08-13] MEDS ORDERED: Warfarin Sodium 3 MG TAB PO SCH (17:00)
--- NOTE | 2019-08-14 12:38 | DIS ---
DATE OF ADMISSION: 08/10/2019 DATE OF DISCHARGE: 08/13/2019 DISCHARGE DIAGNOSES: 1. Left pneumonia. 2. Acute gouty arthropathy of the left knee. 3. Hypertension. 4. Recurrent atrial fibrillation. 5. Mechanical heart valve. 6. History of diabetes. 7. History of hypertension. 8. History of hyperlipidemia. HISTORY OF PRESENT ILLNESS: The patient is an 79-year-old male, who has a history of intermittent atrial fibrillation and mechanical heart valve prosthesis, who was on a cruise when he experienced significant edema and swelling in the left knee. The patient managed to get through the cruise and [place] back to [place], and presented in the emergency department. He had the knee aspirated. He also mentioned some shortness of breath and cough and had a workup for that, which revealed lower lobe pneumonia. The patient was subsequently admitted to the hospital, started on antibiotics. His knee aspirate was positive for crystals consistent with acute gouty arthropathy. He was started on high-dose colchicine and some steroids. He had consultation with Cardiology and initially the patient's INR was significantly elevated over 5. This was subsequently increased without further Coumadin dosing up to about 6-1/2 and then started to decline on its own once within a safe range. The patient was mobilized with physical therapy and was able to ambulate well. His knee was feeling substantially better and his INR dipped down to 1.7. He was given some Lovenox on the day of discharge. It was back up to 2.0, and it was felt to be adequate for discharge without the patient followup. The patient did receive a full 5-day course of IV Levaquin at 750 mg, it was felt to be a complete course. Symptomatically, he was vastly improved. PHYSICAL EXAMINATION: VITAL SIGNS: On the day of discharge, temperature is 97.6, pulse 72, respirations 16, O2 saturations 94% on room air, and blood pressure 140/79. GENERAL: He is awake, alert, oriented, pleasant, cooperative. HEART: Regular rate and rhythm without murmurs, gallops, or rubs. He did have a mechanical heart sound noted. LUNGS: Clear to auscultation bilaterally with good chest wall expansion and air exchange. ABDOMEN: Soft, nontender, and nondistended. Positive bowel sounds. No masses. No organomegaly. EXTREMITIES: There was no significant erythema or effusion of the knee. No significant peripheral edema. DISCHARGE DISPOSITION: The patient is discharged home. ACTIVITY: As tolerated. DIET: He will stay on a heart healthy diet. He will follow up with Dr. Huffman to discuss outpatient therapy and exercise regimen. DISCHARGE MEDICATIONS: 1. He will be on losartan 100 mg p.o. daily. 2. Colchicine 0.6 mg p.o. daily. 3. Levothyroxine 100 mcg daily. 4. Vitamin C 1000 mg p.o. daily. 5. Potassium 20 mEq b.i.d. 6. Lasix 80 mEq b.i.d. 7. CoQ10 100 mg daily. 8. Magnesium 250 mg daily. 9. Glucosamine with chondroitin 1 p.o. b.i.d. 10. Cetirizine 10 mg one p.o. daily. 11. Metoprolol 50 mg daily. 12. Probiotic one p.o. daily. 13. Glipizide 7.5 daily. 14. Vitamin D3 5000 units daily. 15. S [place]-3 fatty acids of fish oil 1000 mg daily. 16. Propafenone 225 mg t.i.d. 17. Protonix 40 mg daily. 18. Warfarin 2 mg every Thursday, Thursday, , Thursday, Thursday and 2.5 on Thursday. FOLLOWUP: He is to follow up with Dr. Juan Carlos Graves in 7 days, Dr. Tatum in 2 to 3 weeks, Dr. Yao Huffman for outpatient followup. He will also follow up with [facility] on Thursday. DISCHARGE INSTRUCTIONS: He can return to the hospital should he have any problems prior to that followup. TIME SPENT: Total time spent in discharge activities including time spent with the patient was greater than 30 minutes. Job ID: [id number]
== END 2019-08-13 15:05 | disposition home or self-care (01) | DRG 553 ==
LOC: ERS 11:56 → ERHOLD 17:16 → 2SE 08-09 04:12 → OBSVTOIN 08-10 18:38
PROVIDERS: ADMIT Internal Medicine; ATTEND Internal Medicine
DX: M10.062 Idiopathic gout, left knee (principal); J18.1 Lobar pneumonia, unspecified organism; E11.9 Type 2 diabetes mellitus without complications; E03.9 Hypothyroidism, unspecified; E78.5 Hyperlipidemia, unspecified; E78.00 Pure hypercholesterolemia, unspecified; I10 Essential (primary) hypertension; I48.0 Paroxysmal atrial fibrillation; G47.33 Obstructive sleep apnea (adult) (pediatric); R79.1 Abnormal coagulation profile; I25.10 Atherosclerotic heart disease of native coronary artery without angina pectoris; Z88.8 Allergy status to other drugs, medicaments and biological substances; Z95.2 Presence of prosthetic heart valve; Z95.0 Presence of cardiac pacemaker; Z95.1 Presence of aortocoronary bypass graft; Z79.899 Other long term (current) drug therapy; Z79.01 Long term (current) use of anticoagulants; Z79.84 Long term (current) use of oral hypoglycemic drugs
CPT/HCPCS: 36415; 36416; 71045; 71275; 80048; 80053; 83880; 84484; 84550; 85025; 85610; 85652; 86140; 87040; 87070; 87205; 93005; 94660; 96374; J1650; J1956; J3010; J3430; J7512; Q9966

== ENCOUNTER 2021-09-13 11:30 | Outpatient (CLI) | payer MEDICARE, BC ==
[2021-09-13 12:49] LABS: Platelet Count 132 10x3/uL (150-450)
[2021-09-13 12:50] LABS: Hemoglobin 11.9 g/dL (13.5-17.5); Mean Corpuscular Hemoglobin 33.2 pg (27.0-33.0); Mean Corpuscular Volume 97.8 fl (81.2-95.1); Mean Platelet Volume 11.4 fl (7.4-10.4); RBC Distribution Width 13.1 % (11.5-14.5); Red Blood Cell (RBC) Count 3.58 10x6/uL (4.32-5.72); White Blood Cell (WBC) Count 5.5 10x3/uL (3.5-10.5)
[2021-09-13 12:58] LABS: Anion Gap 14 mmol/L (10-20); BUN (Urea Nitrogen) 21 mg/dL (8.4-25.7); Calc. Creatinine Clearance 0 mL/min (70-130); Calcium 8.8 mg/dL (7.8-10.44); Carbon Dioxide 26 mmol/L (23-31); Chloride 105 mmol/L (98-107); Glucose 274 mg/dL (83-110); PTT 47.8 sec (22.0-33.0); Potassium 3.8 mmol/L (3.5-5.1); Prothrombin Time 41.6 sec (9.5-12.1); Sodium 141 mmol/L (136-145)
[2021-09-13 21:13] LABS: SARS-CoV-2 PCR by NAA Not Detected (NotDetected)
== END 2021-09-13 11:31 | disposition home or self-care (01) ==
LOC: LABBT 11:30
PROVIDERS: ATTEND Internal Medicine Cardiovascular Disease
DX: Z01.818 Encounter for other preprocedural examination (principal); I48.91 Unspecified atrial fibrillation; Z20.822 Contact with and (suspected) exposure to COVID-19
CPT/HCPCS: 80048; 85027; 85610; 85730; 93005; U0003; U0005; 93010

== ENCOUNTER 2021-09-18 07:33 | Day surgery (SDC) | payer MEDICARE, BC ==
[2021-09-17 10:10] VITALS: BMI 34.4
[2021-09-18] MEDS ORDERED: PROPOFOL 40 ML ONE (09:27)
== END 2021-09-18 10:55 | disposition home or self-care (01) ==
LOC: CCL 07:33
PROVIDERS: ATTEND Internal Medicine Cardiovascular Disease
PROC: B24BZZ4 Ultrasonography of Heart with Aorta, Transesophageal (ICD-10-PCS; principal; 2021-09-18)
DX: I48.19 Other persistent atrial fibrillation (principal); I11.9 Hypertensive heart disease without heart failure; I08.1 Rheumatic disorders of both mitral and tricuspid valves; I70.0 Atherosclerosis of aorta; I48.4 Atypical atrial flutter; I42.8 Other cardiomyopathies; I25.10 Atherosclerotic heart disease of native coronary artery without angina pectoris; E11.9 Type 2 diabetes mellitus without complications; Z79.01 Long term (current) use of anticoagulants; Z79.84 Long term (current) use of oral hypoglycemic drugs; Z79.899 Other long term (current) drug therapy; Z88.6 Allergy status to analgesic agent; Z95.2 Presence of prosthetic heart valve; Z95.810 Presence of automatic (implantable) cardiac defibrillator; Z95.818 Presence of other cardiac implants and grafts; Z98.890 Other specified postprocedural states
CPT/HCPCS: 93312; J2704

== ENCOUNTER 2023-01-02 13:13 | Inpatient (IN) | payer MEDICARE, BC ==
[2023-01-02 14:05] LABS: #Basophils 0.1 thou/uL (0.0-0.2); #Eosinphils 0.2 thou/uL (0.0-0.7); #Lymphocytes 1.9 thou/uL (1.20-3.40); #Monocytes 0.5 thou/uL (0.11-0.59); #Neutrophils 3.4 thou/uL (1.40-6.50); %Basophils 0.9 % (0.0-1.0); %Eosinophils 3.9 % (0.0-10.0); %Lymphocytes 31.3 % (21.0-51.0); %Monocytes 7.9 % (0.0-10.0); %Neutrophils 55.9 % (42.0-75.0); Hemoglobin 13.1 g/dL (14.0-18.0); Mean Corpuscular HGB CONC 35.1 g/dL (32.0-36.0); Mean Corpuscular Hemoglobin 36.2 pg (27.0-31.0); Mean Platelet Volume 8.9 fL (7.4-10.4); Platelet Count 165 10x3/uL (130-400); RBC Distribution Width 12.6 % (11.5-14.5); Red Blood Cell (RBC) Count 3.63 mill/uL (4.70-6.10); White Blood Cell (WBC) Count 6.1 10x3/uL (4.8-10.8)
[2023-01-02 14:11] LABS: ALT (SGPT) 18 U/L (8-55); AST (SGOT) 24 U/L (5-34); Albumin 3.9 g/dL (3.4-4.8); Alkaline Phosphatase 100 U/L (40-110); Anion Gap 11 mmol/L (10-20); BUN (Urea Nitrogen) 47 mg/dL (8.4-25.7); Bilirubin, Total 1.4 mg/dL (0.2-1.2); Calc. Creatinine Clearance 0 mL/min (70-130); Calcium 9.1 mg/dL (7.8-10.44); Carbon Dioxide 37 mmol/L (23-31); Chloride 85 mmol/L (98-107); Estimated GFR 33; Globulin 3.2 g/dL (2.4-3.5); Lipase 109 U/L (8-78); Potassium 2.8 mmol/L (3.5-5.1); Protein, Total 7.1 g/dL (5.8-8.1); Sodium 130 mmol/L (136-145)
[2023-01-02 14:22] LABS: Glucose 430 mg/dL (83-110)
[2023-01-02 14:42] LABS: INR-International Normal Ratio 3.8; PTT 49.6 sec (22.9-36.1); Prothrombin Time 39.2 sec (12.0-14.7)
[2023-01-02] MEDS ORDERED: Ondansetron PF 4 MG/2 ML Vial IVP PRN (15:50)
[2023-01-02] MEDS ORDERED: Acetaminophen 325 MG TAB PO PRN (15:50)
[2023-01-02] MEDS ORDERED: Calcium Carbonate 500 MG ChewTAB PO PRN (15:50)
[2023-01-02] MEDS ORDERED: Senokot S 8.6-50 MG TAB PO PRN (15:50)
[2023-01-02] MEDS ORDERED: Dextrose 5% in Water 1,000 ML IV PRN (15:54)
[2023-01-02] MEDS ORDERED: HumaLOG 300 UNITS/3 ML VIAL SC PRN (15:54)
[2023-01-02] MEDS ORDERED: Dextrose 50% Abboject 50 ML SYRINGE SLOW IVP PRN (15:54)
[2023-01-02] MEDS ORDERED: Sodium Chloride 0.9% 1,000 ML IV SCH (16:00)
[2023-01-02] MEDS ORDERED: Insulin Regular 300 UNITS/3 ML VIAL IVP SCH (16:00)
[2023-01-02] MEDS ORDERED: NS 0.9% w/ 40 MEQ KCL 1,000 ML IV SCH (16:00)
[2023-01-02 18:11] VITALS: BMI 34.5
[2023-01-02 18:40] LABS: Lactic Acid 2.1 mmol/L (0.5-2.2)
[2023-01-02] MEDS: Atorvastatin Calcium 10 MG TAB PO SCH ×2 (20:09→20:15)
[2023-01-02] MEDS: Sodium Chloride 0.9% 1,000 ML IV SCH (20:09)
[2023-01-02] MEDS ORDERED: Insulin Glargine 30 UNITS/0.3 ML VIAL SC SCH (21:00)
[2023-01-02 22:30] LABS: Bacteria/HPF None Seen HPF (None Seen); Bilirubin Negative (Negative); Blood, Urine Negative (Negative); CAUTI Indications for Culture Dysuria,urgency,freq; Clarity Clear (Clear); Glucose, Urine (Dipstick) Normal (Negative); Ketone, Urine Negative (Negative); Leukocyte Negative Leu/uL (Negative); Nitrite Negative (Negative); Protein, Urine (Dipstick) Negative (Neg-Trace); RBC/HPF 0-3 HPF (0-3); Specific Gravity, Urine 1.014 (1.002-1.036); Squamous Epithelial 0-3 HPF (0-3); Urobilinogen Normal mg/dL (Less than 2); WBC/HPF 0-3 HPF (0-3); pH, Urine 6.5 (5.0-9.0)
[2023-01-02 22:31] LABS: Urine Culture Reflex No No
[2023-01-02 23:25] LABS: Troponin I 0.017 ng/mL (< 0.028)
[2023-01-03] MEDS: Levothyroxine Sodium 100 MCG TAB PO SCH (05:30)
[2023-01-03 06:38] LABS: #Eosinphils 0.5 thou/uL (0.0-0.7); #Lymphocytes 2.9 thou/uL (1.20-3.40); #Monocytes 0.7 thou/uL (0.11-0.59); #Neutrophils 2.2 thou/uL (1.40-6.50); %Basophils 0.1 % (0.0-1.0); %Eosinophils 8.2 % (0.0-10.0); %Lymphocytes 45.5 % (21.0-51.0); %Monocytes 10.9 % (0.0-10.0); %Neutrophils 35.3 % (42.0-75.0); Hemoglobin 12.4 g/dL (14.0-18.0); Mean Corpuscular HGB CONC 34.5 g/dL (32.0-36.0); Mean Corpuscular Hemoglobin 35.8 pg (27.0-31.0); Mean Platelet Volume 8.5 fL (7.4-10.4); Platelet Count 161 10x3/uL (130-400); RBC Distribution Width 12.3 % (11.5-14.5); Red Blood Cell (RBC) Count 3.47 mill/uL (4.70-6.10); White Blood Cell (WBC) Count 6.3 10x3/uL (4.8-10.8)
[2023-01-03] MEDS: Sodium Chloride 0.9% 1,000 ML IV SCH ×2 (06:38→16:21)
[2023-01-03 06:46] LABS: INR-International Normal Ratio 3.8; Prothrombin Time 39.5 sec (12.0-14.7)
[2023-01-03 07:24] LABS: ALT (SGPT) 15 U/L (8-55); AST (SGOT) 23 U/L (5-34); Albumin 3.5 g/dL (3.4-4.8); Alkaline Phosphatase 87 U/L (40-110); Anion Gap 12 mmol/L (10-20); BUN (Urea Nitrogen) 33 mg/dL (8.4-25.7); Calc. Creatinine Clearance 73 mL/min (70-130); Calcium 8.7 mg/dL (7.8-10.44); Carbon Dioxide 33 mmol/L (23-31); Chloride 93 mmol/L (98-107); Estimated GFR 61; Globulin 2.8 g/dL (2.4-3.5); Glucose 118 mg/dL (83-110); Magnesium 2.9 mg/dL (1.6-2.6); Protein, Total 6.3 g/dL (5.8-8.1); Sodium 135 mmol/L (136-145)
[2023-01-03 07:46] LABS: Potassium 2.5 mmol/L (3.5-5.1)
[2023-01-03] MEDS: Ezetimibe 10 MG TAB PO SCH (09:25)
[2023-01-03] MEDS: Potassium Chloride 20 MEQ TAB PO SCH ×4 (09:25→20:35)
[2023-01-03] MEDS: HumaLOG 300 UNITS/3 ML VIAL SC PRN (11:35)
[2023-01-03 14:29] LABS: Anion Gap 12 mmol/L (10-20); BUN (Urea Nitrogen) 31 mg/dL (8.4-25.7); Calc. Creatinine Clearance 70 mL/min (70-130); Calcium 8.7 mg/dL (7.8-10.44); Carbon Dioxide 30 mmol/L (23-31); Chloride 94 mmol/L (98-107); Estimated GFR 58; Glucose 229 mg/dL (83-110); Potassium 3.2 mmol/L (3.5-5.1); Sodium 133 mmol/L (136-145)
[2023-01-03] MEDS: Atorvastatin Calcium 10 MG TAB PO SCH (20:35)
[2023-01-03] MEDS ORDERED: Insulin Glargine 30 UNITS/0.3 ML VIAL SC SCH (21:00)
[2023-01-04] MEDS: Sodium Chloride 0.9% 1,000 ML IV SCH (05:09)
[2023-01-04] MEDS: Levothyroxine Sodium 100 MCG TAB PO SCH (05:09)
[2023-01-04 07:29] LABS: #Eosinphils 0.5 thou/uL (0.0-0.7); #Lymphocytes 2.1 thou/uL (1.20-3.40); #Monocytes 0.6 thou/uL (0.11-0.59); %Basophils 0.9 % (0.0-1.0); %Eosinophils 8.7 % (0.0-10.0); %Lymphocytes 39.3 % (21.0-51.0); %Neutrophils 39.1 % (42.0-75.0); Hemoglobin 11.3 g/dL (14.0-18.0); Mean Corpuscular HGB CONC 34.2 g/dL (32.0-36.0); Mean Corpuscular Hemoglobin 35.8 pg (27.0-31.0); Mean Platelet Volume 8.4 fL (7.4-10.4); Platelet Count 140 10x3/uL (130-400); RBC Distribution Width 12.7 % (11.5-14.5); Red Blood Cell (RBC) Count 3.17 mill/uL (4.70-6.10); White Blood Cell (WBC) Count 5.2 10x3/uL (4.8-10.8)
[2023-01-04 07:33] LABS: INR-International Normal Ratio 2.5; Prothrombin Time 28.5 sec (12.0-14.7)
[2023-01-04 07:36] LABS: Anion Gap 11 mmol/L (10-20); BUN (Urea Nitrogen) 25 mg/dL (8.4-25.7); Calc. Creatinine Clearance 87 mL/min (70-130); Calcium 8.4 mg/dL (7.8-10.44); Carbon Dioxide 30 mmol/L (23-31); Chloride 102 mmol/L (98-107); Estimated GFR 76; Glucose 141 mg/dL (83-110); Magnesium 2.5 mg/dL (1.6-2.6); Potassium 3.3 mmol/L (3.5-5.1); Sodium 140 mmol/L (136-145)
[2023-01-04 08:47] LABS: MDiff Complete? YES; Macrocytosis SLIGHT = 6-15 cells (100X) (0-5/hpf); Platelet Morphology Comment Appears Adequate; Polychromasia SLIGHT = 2-3 cells (100X) (0-2/hpf)
[2023-01-04] MEDS: Ezetimibe 10 MG TAB PO SCH (09:14)
[2023-01-04] MEDS: HumaLOG 300 UNITS/3 ML VIAL SC PRN (12:20)
[2023-01-04 12:57] VITALS: TEMP 97.5
[2023-01-04] MEDS ORDERED: Potassium Chloride 20 MEQ TAB PO SCH (13:00)
== END 2023-01-04 16:39 | disposition home or self-care (01) | DRG 683 ==
LOC: SUATTDRO 13:13 → ERS 13:13 → IMCU/EMU 15:56
PROVIDERS: ADMIT Internal Medicine; ATTEND Internal Medicine
DX: N17.9 Acute kidney failure, unspecified (principal); I50.22 Chronic systolic (congestive) heart failure; I95.9 Hypotension, unspecified; E86.0 Dehydration; T50.1X5A Adverse effect of loop [high-ceiling] diuretics, initial encounter; E11.65 Type 2 diabetes mellitus with hyperglycemia; I25.10 Atherosclerotic heart disease of native coronary artery without angina pectoris; E03.9 Hypothyroidism, unspecified; E86.9 Volume depletion, unspecified; Z95.810 Presence of automatic (implantable) cardiac defibrillator; Z95.2 Presence of prosthetic heart valve; Z95.1 Presence of aortocoronary bypass graft; Z88.8 Allergy status to other drugs, medicaments and biological substances; Z79.899 Other long term (current) drug therapy; Z79.01 Long term (current) use of anticoagulants
CPT/HCPCS: 36415; 36416; 71045; 80048; 80053; 81001; 83036; 83605; 83690; 83735; 83880; 84484; 85025; 85610; 85730; 87040; 93005; 94760; J1815; J3480; J7050

== ENCOUNTER 2023-02-22 20:17 | Emergency (ER) | payer MEDICARE, BC ==
[2023-02-22] MEDS ORDERED: Ondansetron PF 4 MG/2 ML Vial ONE (20:43)
[2023-02-22] MEDS ORDERED: Morphine 4 MG/ML VIAL ONE (20:43)
[2023-02-22] MEDS ORDERED: Acetaminophen 500 MG TAB ONE (20:43)
[2023-02-22 20:50] LABS: #Eosinphils 0.3 thou/uL (0.0-0.7); #Monocytes 1.1 thou/uL (0.11-0.59); #Neutrophils 7.2 thou/uL (1.40-6.50); %Basophils 0.1 % (0.0-1.0); %Eosinophils 3.1 % (0.0-10.0); %Lymphocytes 18.9 % (21.0-51.0); %Neutrophils 67.9 % (42.0-75.0); Hemoglobin 12.9 g/dL (14.0-18.0); Mean Corpuscular HGB CONC 34.3 g/dL (32.0-36.0); Mean Corpuscular Hemoglobin 36.3 pg (27.0-31.0); Platelet Count 208 10x3/uL (130-400); RBC Distribution Width 12.8 % (11.5-14.5); Red Blood Cell (RBC) Count 3.57 mill/uL (4.70-6.10); White Blood Cell (WBC) Count 10.7 10x3/uL (4.8-10.8)
[2023-02-22 21:10] LABS: ALT (SGPT) 10 U/L (8-55); AST (SGOT) 16 U/L (5-34); Albumin 3.7 g/dL (3.4-4.8); Alkaline Phosphatase 78 U/L (40-110); Anion Gap 15 mmol/L (10-20); BUN (Urea Nitrogen) 30 mg/dL (8.4-25.7); Bilirubin, Total 0.6 mg/dL (0.2-1.2); Calc. Creatinine Clearance 0 mL/min (70-130); Calcium 9.1 mg/dL (7.8-10.44); Carbon Dioxide 27 mmol/L (23-31); Chloride 98 mmol/L (98-107); Estimated GFR 44; Globulin 3.8 g/dL (2.4-3.5); Glucose 174 mg/dL (83-110); Potassium 4.5 mmol/L (3.5-5.1); Protein, Total 7.5 g/dL (5.8-8.1); Sodium 135 mmol/L (136-145)
[2023-02-22] MEDS ORDERED: Lidocaine 1% PF 5 ML VIAL ONE (23:27)
[2023-02-22] MEDS ORDERED: Triamcinolone 40 MG/ML VIAL I-ARTICULR SCH (23:45)
[2023-02-23 02:06] LABS: RBC Count-Automated (BF) 11643 /cu.mm; WBC/Nucleated-Auto (BF) 712 /cu.mm
[2023-02-23 02:06] LABS: Body Fluid Source Synovial Fluid; Clarity Cloudy/Turbid (Clear); RBC Count-Automated (BF) 76909 /cu.mm; Tube # EDTA; WBC/Nucleated-Auto (BF) 2214 /cu.mm
[2023-02-23 02:07] LABS: BF Color Pink; Body Fluid Source Synovial Fluid; Clarity Hazy (Clear); Tube # EDTA
[2023-02-23 02:07] LABS: BF Color Red
[2023-02-23 02:13] LABS: BF Segmented Neutrophils 86 %; Cell Count Non Hematic 8 %; Lymphocytes 6 %
[2023-02-23 02:28] LABS: BF Segmented Neutrophils 63 %; Cell Count Non Hematic 25 %; Lymphocytes 12 %
== END 2023-02-23 00:26 ==
LOC: ERS 20:17
DX: M25.562 Pain in left knee (principal); M25.561 Pain in right knee; E11.9 Type 2 diabetes mellitus without complications; E03.9 Hypothyroidism, unspecified; E78.00 Pure hypercholesterolemia, unspecified; I10 Essential (primary) hypertension; Z79.01 Long term (current) use of anticoagulants
CPT/HCPCS: 36415; 80053; 82945; 85025; 85060; 85652; 86140; 87070; 87205; 89051; 89060; 96374; 96375; J2270; J2405; J3301

== ENCOUNTER 2023-06-23 16:25 | Emergency (ER) | payer MEDICARE, BC ==
[2023-06-23 19:18] LABS: #Eosinphils 0.3 thou/uL (0.0-0.7); #Monocytes 0.8 thou/uL (0.11-0.59); #Neutrophils 4.6 thou/uL (1.40-6.50); %Basophils 0.2 % (0.0-1.0); %Eosinophils 3.3 % (0.0-10.0); %Lymphocytes 28.9 % (21.0-51.0); %Monocytes 9.7 % (0.0-10.0); %Neutrophils 57.7 % (42.0-75.0); Hemoglobin 14.1 g/dL (14.0-18.0); Mean Corpuscular HGB CONC 33.7 g/dL (32.0-36.0); Mean Corpuscular Hemoglobin 35.4 pg (27.0-31.0); Mean Corpuscular Volume 105.3 fl (78.0-98.0); Mean Platelet Volume 10.9 fL (7.4-10.4); Platelet Count 161 10x3/uL (130-400); RBC Distribution Width 14.3 % (11.5-14.5); Red Blood Cell (RBC) Count 3.98 mill/uL (4.70-6.10); White Blood Cell (WBC) Count 8.1 10x3/uL (4.8-10.8)
[2023-06-23 19:51] LABS: Albumin 3.9 g/dL (3.4-4.8)
[2023-06-23 19:52] LABS: Chloride 107 mmol/L (98-107); Potassium 4.3 mmol/L (3.5-5.1); Sodium 135 mmol/L (136-145)
[2023-06-23 19:53] LABS: Calcium 8.6 mg/dL (7.8-10.44); Glucose 192 mg/dL (83-110)
[2023-06-23 19:54] LABS: Globulin 3.4 g/dL (2.4-3.5); Protein, Total 7.3 g/dL (5.8-8.1)
[2023-06-23 19:55] LABS: Bilirubin, Total 0.6 mg/dL (0.2-1.2); Carbon Dioxide 16 mmol/L (23-31)
[2023-06-23 19:56] LABS: Alkaline Phosphatase 111 U/L (40-110)
[2023-06-23 19:57] LABS: BUN (Urea Nitrogen) 26 mg/dL (8.4-25.7); Calc. Creatinine Clearance 0 mL/min (70-130); Estimated GFR 41
[2023-06-23 19:59] LABS: ALT (SGPT) 21 U/L (8-55); AST (SGOT) 31 U/L (5-34)
[2023-06-23 20:11] LABS: Anion Gap 16 mmol/L (10-20)
[2023-06-23 22:17] LABS: Lactic Acid 1.4 mmol/L (0.5-2.2)
== END 2023-06-23 22:56 | disposition home or self-care (01) ==
LOC: ERS 16:25
DX: R42 Dizziness and giddiness (principal); I11.0 Hypertensive heart disease with heart failure; I50.9 Heart failure, unspecified; E11.9 Type 2 diabetes mellitus without complications
CPT/HCPCS: 36415; 80053; 83605; 84484; 85025; 93005

== ENCOUNTER 2023-10-15 16:23 | Emergency (ER) | payer MEDICARE, BC ==
[~2023-10-15 16:23] MED LIST: Iopamidol-370 76% 500 ML MDV (1 ML CHARGE) ONE
[2023-10-15] MEDS ORDERED: Ondansetron PF 4 MG/2 ML Vial ONE (16:49)
[2023-10-15 17:15] LABS: #Eosinphils 0.1 thou/uL (0.0-0.7); #Monocytes 0.5 thou/uL (0.11-0.59); #Neutrophils 5.1 thou/uL (1.40-6.50); %Basophils 0.3 % (0.0-1.0); %Monocytes 6.7 % (0.0-10.0); %Neutrophils 63.6 % (42.0-75.0); Hematocrit 44.9 % (42.0-52.0); Hemoglobin 15.4 g/dL (14.0-18.0); Mean Corpuscular HGB CONC 34.3 g/dL (32.0-36.0); Mean Corpuscular Hemoglobin 35.1 pg (27.0-31.0); Mean Corpuscular Volume 102.3 fl (78.0-98.0); Platelet Count 180 10x3/uL (130-400); Red Blood Cell (RBC) Count 4.39 mill/uL (4.70-6.10); White Blood Cell (WBC) Count 7.9 10x3/uL (4.8-10.8)
[2023-10-15 17:45] LABS: ALT (SGPT) 17 U/L (8-55); AST (SGOT) 33 U/L (5-34); Albumin 4.3 g/dL (3.4-4.8); Alkaline Phosphatase 87 U/L (40-110); Anion Gap 19 mmol/L (10-20); BUN (Urea Nitrogen) 35 mg/dL (8.4-25.7); Bilirubin, Total 1.4 mg/dL (0.2-1.2); Calc. Creatinine Clearance 0 mL/min (70-130); Calcium 9.5 mg/dL (7.8-10.44); Carbon Dioxide 21 mmol/L (23-31); Chloride 103 mmol/L (98-107); Estimated GFR 41; Globulin 3.8 g/dL (2.4-3.5); Glucose 181 mg/dL (83-110); Lipase 83 U/L (8-78); Potassium 4.8 mmol/L (3.5-5.1); Protein, Total 8.1 g/dL (5.8-8.1); Sodium 138 mmol/L (136-145)
== END 2023-10-15 19:37 | disposition home or self-care (01) ==
LOC: ERS 16:23
DX: R11.2 Nausea with vomiting, unspecified (principal); I11.0 Hypertensive heart disease with heart failure; I50.9 Heart failure, unspecified; E11.9 Type 2 diabetes mellitus without complications; E03.9 Hypothyroidism, unspecified; I48.91 Unspecified atrial fibrillation; Z95.0 Presence of cardiac pacemaker
CPT/HCPCS: 74177; 80053; 83690; 85025; 93005; 96361; 96374; J2405; Q9967